=== PATIENT | male | born 1960 | race Caucasian/White ===

== ENCOUNTER 2018-05-09 11:33 | Emergency (ER) | payer MEDICAID ==
[~2018-05-09] VITALS: Ht 170.2 cm; Wt 90.0 kg
[2018-05-09 15:11] VITALS: BP 156/90
== END 2018-05-09 15:15 | disposition home or self-care (01) ==
LOC: ER 11:33
DX: B35.4 Tinea corporis (principal); I10 Essential (primary) hypertension
CPT/HCPCS: 99283

== ENCOUNTER 2019-11-10 08:05 | Emergency (ER) | payer MEDICAID ==
[~2019-11-10] VITALS: Ht 170.2 cm; Wt 93.0 kg
[2019-11-10] MEDS ORDERED: KETOROLAC 30MG/ML VIAL IM ONE (09:45)
[2019-11-10 09:55] VITALS: BP 155/100
== END 2019-11-10 11:05 | disposition home or self-care (01) ==
LOC: ER 09:12
DX: M25.521 Pain in right elbow (principal); M79.601 Pain in right arm; I10 Essential (primary) hypertension; E78.00 Pure hypercholesterolemia, unspecified
CPT/HCPCS: 73080; 96372; 99283; J1885